=== PATIENT | female | born 1935 | race Caucasian/White ===

== ENCOUNTER 2017-08-14 12:58 | Emergency (ER) | payer MEDICARE, BC ==
--- NOTE | 2017-08-14 13:33 | UC ---
Lower Extremity/Ankle HPI - HPI Summary HPI Summary: Pt presents with left leg injury. She tells me that about 1 hour SHOW GIRL she was getting into the passenger side of a truck. She stepped onto the runner to boost herself and it gave way. She stumbled and hit her left lower leg against the car. Now has some swelling and a bruise - she is concerned about what to do for this. She is ambulating without assistance. Does not currently smoke. No hx of cancer, DVT, blood clot, or fam hx of clotting dz. - History of Current Complaint Chief Complaint: UCLowerExtremity Stated Complaint: LEFT LEG COMPLAINT Time Seen by Provider: 08/14/17 13:33 Hx Obtained From: Patient Onset/Duration: Sudden Onset Severity Initially: Moderate Severity Currently: Moderate Pain Intensity: 5 Pain Scale Used: 0-10 Numeric Able to Bear Weight: Yes - Allergies/Home Medications Allergies/Adverse Reactions: Allergies Allergy/AdvReac Type Severity Reaction Status Date / Time amoxicillin [From Augmentin] Allergy Unknown Verified 08/14/17 13:30 Reaction Details clavulanic acid Allergy Unknown Verified 08/14/17 13:30 [From Augmentin] Reaction Details Dust mites, Trees, Mold Allergy Eyes Uncoded 08/14/17 13:30 Itchy/Swollen/Red/Watery Home Medications: Home Medications Albuterol inh POWDER (NF) [Proair Respiclick] 2 inhaler .ROUTE DAILY 08/14/17 [ History Confirmed 08/14/17] Atorvastatin* [Lipitor*] 10 mg PO SEE INSTRUCTIONS 08/14/17 [History Confirmed 08/14/17] Calcium Carb/Vitamin D3/Vit K1 [Calcium + D] 1 chw PO DAILY 08/14/17 [History Confirmed 08/14/17] Cinnamon Bark [Cinnamon] 500 mg PO DAILY 08/14/17 [History Confirmed 08/14/17] Glucosam Sul Na/Chondr [Glucosamine-Chondroitin Tablet] 1 each PO DAILY [History Confirmed 08/14/17] Hydrochlorothiazide TAB* [Hydrodiuril TAB*] 12.5 mg PO DAILY 08/14/17 [History Confirmed 08/14/17] Lactobacillus Acidophilu (GG)* [Culturelle*] 1 cap PO DAILY 08/14/17 [History Confirmed 08/14/17] Montelukast Sodium TAB* [Singulair TAB*] 10 mg PO DAILY 08/14/17 [History Confirmed 08/14/17] Lignum-3/Dha/Epa/Fish Oil [Lignum 3 500 500 mg] 1 cap PO DAILY 08/14/17 [History Confirmed 08/14/17] Resver/Wine/Bfl/Grpsd/Pc/C/Grp [Red Wine Complex Capsule] 1 each PO DAILY [History Confirmed 08/14/17] Spiriva Inhaler DEVICE* [Tiotropium Inhaler DEVICE*] 1 inh .ROUTE DAILY [History Confirmed 08/14/17] Ubidecarenone [Coenzyme Q-10] 30 mg PO DAILY 08/14/17 [History Confirmed ] amLODIPine/Benazepril 02/19(NF [Lotrel 02/19(NF)] 1 cap PO DAILY 08/14/17 [ History Confirmed 08/14/17] metFORMIN* [Glucophage 500 MG TAB *] 500 mg PO BID 08/14/17 [History Confirmed 08/14/17] PMH/Surg Hx/FS Hx/Imm Hx Endocrine History: Diabetes, Dyslipidemia Cardiovascular History: Hypertension Respiratory History: Asthma - Surgical History Surgical History: Yes Surgery Procedure, Year, and Place: Colonoscopy 08/16, 08/13, 11/08. Endoscopy , 11/08. excision of labial cyst 11/12. Bronchoscopy 07/13. Bunionectomy . Carpal Tunnel release right wrist 09/2007. Cholescystectomy 1988. Hysterectomy 1988. T&A 1940. Hernia repair 1936 - Family History Known Family History: Positive: Cardiac Disease, Hypertension, Diabetes - Social History Occupation: Retired Lives: With Family Alcohol Use: None Substance Use Type: None Smoking Status (MU): Former Smoker When Did the Patient Quit Smoking/Using Tobacco: quit 30 yrs ago - Immunization History Most Recent Tetanus Shot: 10/2009 Review of Systems Constitutional: Negative Skin: Bruising - Left lower leg Respiratory: Negative Cardiovascular: Negative Neurovascular: Negative Musculoskeletal: Negative Neurological: Negative Psychological: Negative All Other Systems Reviewed And Are Negative: Yes Physical Exam - Summary Physical Exam Summary: GENERAL: NAD. WDWN. No pain distress. SKIN: 2.0cm area of mild ecchymosis on the medial aspect of the lower 1/3 left leg. TTP with mild edema. No open sore/laceration. NECK: Supple. Nontender. No lymphadenopathy. CHEST: CTAB. No r/r/w. No accessory muscle use. Breathing comfortably and in no distress. CV: RRR. Without m/r/g. Pulses intact PT and DP. Brisk cap refill. MSK: FROM left ankle and knee. Strength 5/5. Edema and ecchymosis as described above. NEURO: Alert. Sensations intact and symmetric B/L LEs PSYCH: Age appropriate behavior. Triage Information Reviewed: Yes Vital Signs: Initial Vital Signs Temp 98.9 F 08/14/17 13:23 Pulse 104 08/14/17 13:23 Resp 16 08/14/17 13:23 BP 182/90 08/14/17 13:23 Pulse Ox 97 08/14/17 13:23 Lower Extremity Course/Dx - Course Course Of Treatment: Contusion left lower leg. Advised to ice the area and keep active/walking to prevent DVT. - Differential Dx/Diagnosis Provider Diagnoses: Contusion left lower leg Discharge - Sign-Out/Discharge Documenting (check all that apply): Discharge - Discharge Plan Condition: Stable Disposition: HOME Patient Education Materials: Contusion in Adults (ED) Referrals: Non Staff,Doctor [Primary Care Provider] - Additional Instructions: If you develop a fever, shortness of breath, chest pain, new or worsening symptoms - please call your PCP or go to the ED. Your blood pressure was high at todays visit. Please see your primary provider within 4 weeks for recheck and re-evaluation. 1) Apply ice to your bruise as much as possible over the next 24-48 hours 2) Keep walking and moving as much as possible to prevent a blood clot 3) If your notice swelling or pain in your calf/thigh or if you have shortness of breath or new symptoms - please call your PCP. - Billing Disposition and Condition Condition: STABLE Disposition: HOME
== END 2017-08-14 13:51 | disposition home or self-care (01) ==
LOC: UCCORT 12:58
DX: S80.12XA Contusion of left lower leg, initial encounter (principal); V58.4XXA Person boarding or alighting a pick-up truck or van injured in noncollision transport accident, initial encounter; Y93.89 Activity, other specified; Y92.9 Unspecified place or not applicable; Z88.0 Allergy status to penicillin; Z88.8 Allergy status to other drugs, medicaments and biological substances; Z91.09 Other allergy status, other than to drugs and biological substances; E78.5 Hyperlipidemia, unspecified; E11.9 Type 2 diabetes mellitus without complications; Z79.84 Long term (current) use of oral hypoglycemic drugs; J45.909 Unspecified asthma, uncomplicated; I10 Essential (primary) hypertension; Z87.891 Personal history of nicotine dependence
CPT/HCPCS: 99201; G0463